=== PATIENT | female | born 1995 | race Caucasian/White ===

== ENCOUNTER 2022-05-03 11:58 | Inpatient (IN) | payer MEDICAID, OTHER ==
[~2022-05-03] VITALS: Ht 154.9 cm; Wt 55.6 kg
[2022-05-03] VITALS (13 sets, daily range): BP systolic 49–114; BP diastolic 18–96
[2022-05-03] MEDS ORDERED: SODIUM CHLORIDE 0.9% 1000ML BAG (SEPSIS BOLUS) IV ONE (12:45)
[2022-05-03 13:22] LABS: BG BASE EXCESS -20.4 mmol/L (-2.0-2.0); BG CARBOXYHEMOGLOBIN 0.3 % (0.5-1.5); BG DEOXYHEMOGLOBIN 1.8 % (0.0-5.0); BG HCO3 ACT 5.1 mmol/L (22.0-26.0); BG METHEMOGLOBIN 0.5 % (0.0-1.5); BG OXYGEN SATURATION 98.2 % (92.0-98.5); BG OXYHEMOGLOBIN 97.4 % (94.0-97.0); BG PCO2 13.1 mmHg (35.0-45.0); BG PH 7.209 (7.350-7.450); BG PO2 128.8 mmHg (75.0-100.0); BG SAMPLE SITE RIGHT RADIAL; BG TOTAL HEMOGLOBIN 11.6 g/dL (12.0-18.0); BG VENT MODE ROOM AIR
[2022-05-03 13:22] LABS: HEMATOCRIT. 33.5 % (36.0-48.0); HEMOGLOBIN. 10.9 g/dL (12.0-16.0); MEAN CORPUSCULAR HEMOGLOBIN 28.4 pg (28.0-32.0); MEAN CORPUSCULAR VOLUME 87.5 fL (81.0-99.0); MEAN PLATELET VOLUME 8.3 fl (7.4-10.4); PLATELET 456 x1000/uL (130-400); RED BLOOD CELL COUNT 3.83 mill/uL (4.2-5.4); RED CELL DISTRIBUTION WIDTH 15.6 % (11.6-14.6)
[2022-05-03] MEDS: ONDANSETRON HCL 4MG/2ML INJ IV NR ×2 (13:26→13:28)
[2022-05-03 13:27] LABS: CHLORIDE 89 mEq/L (98-107)
[2022-05-03 13:29] LABS: INR 1.2
[2022-05-03 13:34] LABS: HCG SCREEN NEGATIVE
[2022-05-03 13:39] LABS: BETA HYDROXYBUTYRATE 8.1 mMol/L (0.0-0.3); ETHANOL BLOOD < 10 mg/dL
[2022-05-03] MEDS ORDERED: POTASSIUM CHLORIDE 20MEQ TABLET SR PO NR (13:45)
[2022-05-03] MEDS ORDERED: PIPERACILLIN/TAZ 3.375G PREMIX 50 ML IV ONE (13:45)
[2022-05-03] MEDS ORDERED: VANCOMYCIN 1G PREMIX 200 ML IV SCH (13:45)
[2022-05-03] MEDS ORDERED: MORPHINE SULFATE 4 MG/ML CPJ (NOT FOR IM USE) IV NR (13:45)
[2022-05-03 13:58] LABS: PLATELET ESTIMATE SLIGHTLY INCREASED
[2022-05-03 14:11] LABS: C REACTIVE PROTEIN QUANT < 190.0 mg/L (0.0-3.0)
[2022-05-03] MEDS ORDERED: ONDANSETRON HCL 4MG/2ML INJ IV NR (15:00)
[2022-05-03] MEDS ORDERED: KCL 20MEQ/100ML PREMIX 100 ML IV ONE ×2 (16:15→17:30)
[2022-05-03 16:26] LABS: CLARITY URINE CLEAR (CLEAR); COLOR URINE YELLOW (YELLOW); KETONES URINE 4+ (NEGATIVE); LEUKOCYTE ESTERASE URINE 1+ (NEGATIVE); NITRITE URINE NEGATIVE (NEGATIVE); OCCULT BLOOD URINE 2+ (NEGATIVE); PROTEIN URINE 2+ (NEGATIVE); SPECIFIC GRAVITY URINE 1.022 (1.005-1.030); UROBILINOGEN URINE 0.2 E.U./dL (0.2-1.0)
[2022-05-03 16:52] LABS: *AMPHETAMINES SCREEN URINE NEGATIVE (NEGATIVE); *BARBITURATES SCREEN URINE NEGATIVE (NEGATIVE); *BENZODIAZEPINES SCREEN URINE NEGATIVE (NEGATIVE); *COCAINE SCREEN URINE NEGATIVE (NEGATIVE); METHADONE URINE SCREEN NEGATIVE (NEGATIVE); PHENCYCLIDINE URINE SCREEN NEGATIVE (NEGATIVE)
[2022-05-03 16:54] LABS: CANNABINOID URINE SCREEN PRESUMTIVE POSITIVE (NEGATIVE); OPIATES URINE SCREEN PRESUMTIVE POSITIVE (NEGATIVE)
[2022-05-03 17:12] LABS: CHLORIDE 94 mEq/L (98-107)
[2022-05-03] MEDS ORDERED: INSULIN REGULAR (HUMULIN R) 300UNITS/3ML VIAL IV ONE (17:30)
[2022-05-03] MEDS ORDERED: INSULIN REGULAR (DRIP) 100 UNITS in SODIUM CHLORIDE 0.9% 100 ML IV ONE (17:30)
[2022-05-03] MEDS ORDERED: SODIUM BICARBONATE 8.4% 1 MEQ/ML 50ML SYR IV ONE (17:45)
[2022-05-03] MEDS ORDERED: INSULIN REGULAR 100U/100ML PMX 100 ML IV SCH (17:45)
[2022-05-03] MEDS ORDERED: NALOXONE HCL 0.4MG/ML VIAL IV PRN (22:30)
[2022-05-03] MEDS: HYDROCODONE/ACETAMINOPHEN 10/325MG TABLET PO PRN (22:51)
[2022-05-04] VITALS (81 sets, daily range): BP systolic 92–154; BP diastolic 55–112
[2022-05-04] MEDS: DEXT 5%/0.45% NACL KCL 40MEQ/L 1,000 ML IV SCH ×2 (03:00→13:38)
[2022-05-04] MEDS ORDERED: INSULIN REGULAR 100U/100ML PMX 100 ML IV SCH ×2 (03:45→15:15)
[2022-05-04] MEDS ORDERED: DEXTROSE 50% WATER 50ML SYRINGE IV PRN ×2 (03:45)
[2022-05-04] MEDS ORDERED: INSULIN REGULAR (DRIP) 100 UNITS in SODIUM CHLORIDE 0.9% 100 ML IV SCH (03:45)
[2022-05-04] MEDS: BLOOD SUGAR DIAGNOSTIC STRIP TEST SCH ×21 (03:53→23:45)
[2022-05-04] MEDS: ONDANSETRON HCL 4MG TABLET PO PRN ×2 (04:28→13:48)
[2022-05-04 05:14] LABS: CHLORIDE 103 mEq/L (98-107)
[2022-05-04] MEDS ORDERED: POTASSIUM CHLORIDE INJ 60 MEQ in DEXT 5% WATER 250 ML IV ONE (05:30)
[2022-05-04] MEDS ORDERED: KCL 20MEQ/100ML X 3 FOR TOTAL KCL 60MEQ/200ML IV SCH (05:45)
[2022-05-04] MEDS: KCL 20MEQ/100ML X 3 FOR TOTAL KCL 60MEQ/200ML IV SCH ×3 (07:44→11:48)
[2022-05-04] MEDS: PIPERACILLIN/TAZOBACTAM 3.375 G in DEXTROSE 5% WATER 50 ML IV SCH ×3 (07:45→21:33)
[2022-05-04] MEDS ORDERED: VANCOMYCIN 1,000 MG in DEXT 5% WATER 250 ML IV SCH (08:00)
[2022-05-04 10:15] LABS: HEMATOCRIT. 27.7 % (36.0-48.0); HEMOGLOBIN. 9.3 g/dL (12.0-16.0); MEAN CORPUSCULAR HEMOGLOBIN 27.7 pg (28.0-32.0); MEAN CORPUSCULAR VOLUME 82.8 fL (81.0-99.0); MEAN PLATELET VOLUME 7.8 fl (7.4-10.4); PLATELET 255 x1000/uL (130-400); RED BLOOD CELL COUNT 3.35 mill/uL (4.2-5.4); RED CELL DISTRIBUTION WIDTH 16.2 % (11.6-14.6)
[2022-05-04 10:22] LABS: CHLORIDE 102 mEq/L (98-107)
[2022-05-04 10:59] LABS: PHOSPHORUS 0.8 mg/dL (2.5-4.9)
[2022-05-04] MEDS ORDERED: SODIUM PHOS,M-BASIC-D-BASIC 30 MM in DEXT 5% WATER 500 ML IV NR (12:30)
[2022-05-04 14:41] LABS: PLATELET ESTIMATE NORMAL
[2022-05-04 17:13] LABS: CHLORIDE 98 mEq/L (98-107)
[2022-05-04 17:50] LABS: PHOSPHORUS 1.4 mg/dL (2.5-4.9)
[2022-05-04] MEDS ORDERED: POTASSIUM PHOS,M-BASIC-D-BASIC 20 MMOL in DEXT 5% WATER 243.3333 ML IV NR (20:00)
[2022-05-04] MEDS: HYDROCODONE/ACETAMINOPHEN 10/325MG TABLET PO PRN (20:18)
[2022-05-04 21:58] LABS: CHLORIDE 99 mEq/L (98-107)
[2022-05-04 22:02] LABS: PHOSPHORUS 1.1 mg/dL (2.5-4.9)
[2022-05-04] MEDS ORDERED: POTASSIUM CHLORIDE INJ 40 MEQ in DEXT 5% WATER 500 ML IV ONE (22:15)
[2022-05-04] MEDS ORDERED: POTASSIUM PHOS,M-BASIC-D-BASIC 15 MMOL in DEXT 5% WATER 245 ML IV NR (23:30)
[2022-05-05] VITALS (55 sets, daily range): BP systolic 93–147; BP diastolic 51–103
[2022-05-05] MEDS: BLOOD SUGAR DIAGNOSTIC STRIP TEST SCH ×13 (00:45→21:38)
[2022-05-05] MEDS: KCL 20MEQ/100ML X 2 FOR TOTAL KCL 40MEQ/200ML IV SCH ×2 (01:07→02:08)
[2022-05-05] MEDS: DEXT 5%/0.45% NACL KCL 40MEQ/L 1,000 ML IV SCH ×2 (01:14→08:16)
[2022-05-05] MEDS: HYDROCODONE/ACETAMINOPHEN 10/325MG TABLET PO PRN ×3 (02:31→22:35)
[2022-05-05 05:39] LABS: HEMATOCRIT. 25.5 % (36.0-48.0); HEMOGLOBIN. 8.7 g/dL (12.0-16.0); MEAN CORPUSCULAR VOLUME 82.4 fL (81.0-99.0); MEAN PLATELET VOLUME 8.3 fl (7.4-10.4); PLATELET 202 x1000/uL (130-400); RED BLOOD CELL COUNT 3.09 mill/uL (4.2-5.4); RED CELL DISTRIBUTION WIDTH 16.1 % (11.6-14.6)
[2022-05-05 05:45] LABS: CHLORIDE 101 mEq/L (98-107)
[2022-05-05 05:48] LABS: PHOSPHORUS 1.8 mg/dL (2.5-4.9)
[2022-05-05] MEDS: PIPERACILLIN/TAZOBACTAM 3.375 G in DEXTROSE 5% WATER 50 ML IV SCH ×3 (06:29→21:43)
[2022-05-05 09:33] LABS: CHLORIDE 101 mEq/L (98-107)
[2022-05-05 09:44] LABS: PHOSPHORUS 1.4 mg/dL (2.5-4.9)
[2022-05-05] MEDS ORDERED: INSULIN GLARGINE 100 UNITS/ML SUBCUT NR (11:00)
[2022-05-05] MEDS ORDERED: DEXTROSE 50% WATER 50ML SYRINGE IV PRN (11:00)
[2022-05-05] MEDS: SODIUM CHLORIDE 0.9% 1,000 ML IV SCH ×2 (11:11→22:03)
[2022-05-05] MEDS: INSULIN LISPRO 100 UNITS/ML SUBCUT SCH ×3 (12:16→21:57)
[2022-05-05 12:55] LABS: CHLORIDE 100 mEq/L (98-107)
[2022-05-05] MEDS ORDERED: SODIUM PHOS,M-BASIC-D-BASIC 20 MM in DEXT 5% WATER 243.3333 ML IV NR (13:00)
[2022-05-05 13:04] LABS: PHOSPHORUS 1.1 mg/dL (2.5-4.9)
[2022-05-05 13:16] LABS: NUCLEATED RED BLOOD CELLS 2 /100 WBC
[2022-05-05 13:17] LABS: PLATELET ESTIMATE NORMAL
[2022-05-05] MEDS ORDERED: NALOXONE HCL 0.4MG/ML VIAL IV PRN (15:15)
[2022-05-05 17:02] LABS: CHLORIDE 99 mEq/L (98-107)
[2022-05-05 17:09] LABS: PHOSPHORUS 2.6 mg/dL (2.5-4.9)
[2022-05-05] MEDS ORDERED: INSULIN GLARGINE 100 UNITS/ML SUBCUT SCH (22:00)
[2022-05-05 22:31] LABS: CHLORIDE 100 mEq/L (98-107)
[2022-05-06] VITALS (15 sets, daily range): BP systolic 88–135; BP diastolic 33–86
[2022-05-06] MEDS: PIPERACILLIN/TAZOBACTAM 3.375 G in DEXTROSE 5% WATER 50 ML IV SCH ×3 (06:22→22:31)
[2022-05-06 06:39] LABS: HEMOGLOBIN. 8.9 g/dL (12.0-16.0); MEAN CORPUSCULAR HEMOGLOBIN 28.3 pg (28.0-32.0); MEAN CORPUSCULAR VOLUME 82.9 fL (81.0-99.0); MEAN PLATELET VOLUME 8.4 fl (7.4-10.4); PLATELET 233 x1000/uL (130-400); RED BLOOD CELL COUNT 3.13 mill/uL (4.2-5.4); RED CELL DISTRIBUTION WIDTH 16.5 % (11.6-14.6)
[2022-05-06] MEDS: BLOOD SUGAR DIAGNOSTIC STRIP TEST SCH ×4 (07:02→21:36)
[2022-05-06 07:19] LABS: CHLORIDE 100 mEq/L (98-107)
[2022-05-06] MEDS: SODIUM CHLORIDE 0.9% 1,000 ML IV SCH ×2 (09:11→16:34)
[2022-05-06] MEDS: HYDROCODONE/ACETAMINOPHEN 10/325MG TABLET PO PRN (09:19)
[2022-05-06] MEDS: INSULIN GLARGINE 100 UNITS/ML SUBCUT SCH ×2 (09:20→22:40)
[2022-05-06] MEDS: INSULIN LISPRO 100 UNITS/ML SUBCUT SCH ×4 (09:20→22:39)
[2022-05-06] MEDS: ONDANSETRON HCL 4MG/2ML INJ IV PRN (19:56)
[2022-05-06] MEDS: ACETAMINOPHEN 650MG/20.3ML UDC PO PRN (19:57)
[2022-05-07] VITALS (13 sets, daily range): BP systolic 85–139; BP diastolic 27–89
[2022-05-07] MEDS: METOCLOPRAMIDE HCL 10MG/2ML VIAL IV SCH ×5 (00:26→18:26)
[2022-05-07] MEDS: HYDROCODONE/ACETAMINOPHEN 10/325MG TABLET PO PRN ×2 (00:32→21:47)
[2022-05-07] MEDS: PIPERACILLIN/TAZOBACTAM 3.375 G in DEXTROSE 5% WATER 50 ML IV SCH ×3 (06:21→21:47)
[2022-05-07] MEDS: SODIUM CHLORIDE 0.9% 1,000 ML IV SCH ×2 (06:22→13:00)
[2022-05-07] MEDS: ONDANSETRON HCL 4MG/2ML INJ IV PRN (06:43)
[2022-05-07] MEDS: BLOOD SUGAR DIAGNOSTIC STRIP TEST SCH ×4 (07:30→21:00)
[2022-05-07] MEDS: INSULIN LISPRO 100 UNITS/ML SUBCUT SCH ×4 (08:35→21:37)
[2022-05-07 09:02] LABS: HEMATOCRIT. 26.1 % (36.0-48.0); HEMOGLOBIN. 8.7 g/dL (12.0-16.0); MEAN CORPUSCULAR HEMOGLOBIN 27.7 pg (28.0-32.0); MEAN CORPUSCULAR VOLUME 83.2 fL (81.0-99.0); MEAN PLATELET VOLUME 7.7 fl (7.4-10.4); PLATELET 224 x1000/uL (130-400); RED BLOOD CELL COUNT 3.14 mill/uL (4.2-5.4); RED CELL DISTRIBUTION WIDTH 16.2 % (11.6-14.6)
[2022-05-07 09:34] LABS: CHLORIDE 98 mEq/L (98-107)
[2022-05-07] MEDS: INSULIN GLARGINE 100 UNITS/ML SUBCUT SCH ×2 (10:21→21:36)
[2022-05-07 10:25] LABS: PLATELET ESTIMATE NORMAL
[2022-05-07] MEDS ORDERED: PHENAZOPYRIDINE HCL 100MG TABLET PO PRN (13:30)
[2022-05-07] MEDS ORDERED: POTASSIUM CHLORIDE INJ 40 MEQ in DEXT 5% WATER 250 ML IV ONE (15:30)
[2022-05-07 23:06] LABS: PLATELET ESTIMATE NORMAL
[2022-05-08] VITALS (12 sets, daily range): BP systolic 94–125; BP diastolic 58–93
[2022-05-08] MEDS: METOCLOPRAMIDE HCL 10MG/2ML VIAL IV SCH ×5 (00:17→23:47)
[2022-05-08] MEDS: SODIUM CHLORIDE 0.9% 1,000 ML IV SCH ×3 (00:18→17:54)
[2022-05-08] MEDS: PIPERACILLIN/TAZOBACTAM 3.375 G in DEXTROSE 5% WATER 50 ML IV SCH ×3 (06:08→21:43)
[2022-05-08] MEDS: BLOOD SUGAR DIAGNOSTIC STRIP TEST SCH ×4 (07:15→21:40)
[2022-05-08] MEDS: INSULIN LISPRO 100 UNITS/ML SUBCUT SCH ×4 (08:50→21:00)
[2022-05-08] MEDS: INSULIN GLARGINE 100 UNITS/ML SUBCUT SCH ×2 (10:14→21:48)
[2022-05-08] MEDS ORDERED: POTASSIUM CHLORIDE 20MEQ TABLET SR PO ONE (10:15)
[2022-05-08] MEDS: ACETAMINOPHEN 650MG/20.3ML UDC PO PRN (18:37)
[2022-05-08 20:03] LABS: HEMATOCRIT. 26.3 % (36.0-48.0); HEMOGLOBIN. 8.7 g/dL (12.0-16.0); MEAN CORPUSCULAR HEMOGLOBIN 27.8 pg (28.0-32.0); MEAN CORPUSCULAR VOLUME 83.5 fL (81.0-99.0); MEAN PLATELET VOLUME 7.6 fl (7.4-10.4); PLATELET 329 x1000/uL (130-400); RED BLOOD CELL COUNT 3.15 mill/uL (4.2-5.4); RED CELL DISTRIBUTION WIDTH 16.1 % (11.6-14.6)
[2022-05-08 20:11] LABS: CHLORIDE 96 mEq/L (98-107)
[2022-05-08] MEDS: HYDROCODONE/ACETAMINOPHEN 10/325MG TABLET PO PRN (21:44)
[2022-05-08 22:17] LABS: PLATELET ESTIMATE NORMAL
[2022-05-09] VITALS (7 sets, daily range): BP systolic 93–141; BP diastolic 25–89
[2022-05-09] MEDS: METOCLOPRAMIDE HCL 10MG/2ML VIAL IV SCH (06:13)
[2022-05-09] MEDS: PIPERACILLIN/TAZOBACTAM 3.375 G in DEXTROSE 5% WATER 50 ML IV SCH (06:13)
[2022-05-09] MEDS: INSULIN LISPRO 100 UNITS/ML SUBCUT SCH (06:13)
[2022-05-09] MEDS: BLOOD SUGAR DIAGNOSTIC STRIP TEST SCH (06:13)
[2022-05-09] MEDS: SODIUM CHLORIDE 0.9% 1,000 ML IV SCH (06:15)
[2022-05-09] MEDS: INSULIN GLARGINE 100 UNITS/ML SUBCUT SCH (10:00)
[2022-05-09] MEDS ORDERED: LEVO500T90 MT (11:03)
== END 2022-05-09 13:15 | disposition home or self-care (01) | DRG 720 ==
LOC: ER 12:09 → EDBEDREQSVC 13:49 → EDBEDREQ 13:49 → EDBEDREQTM 13:49 → EDBEDREQ 17:20 → ENRESERV 18:28 → MICUNO 20:31 → 5EST 05-05 15:08
PROVIDERS: ADMIT Internal Medicine; ATTEND Internal Medicine
DX: A41.59 Other Gram-negative sepsis (principal); E11.10 Type 2 diabetes mellitus with ketoacidosis without coma; E43 Unspecified severe protein-calorie malnutrition; N15.1 Renal and perinephric abscess; E87.8 Other disorders of electrolyte and fluid balance, not elsewhere classified; N12 Tubulo-interstitial nephritis, not specified as acute or chronic; E87.1 Hypo-osmolality and hyponatremia; D64.9 Anemia, unspecified; E87.6 Hypokalemia; R65.20 Severe sepsis without septic shock; Z20.822 Contact with and (suspected) exposure to COVID-19; Z79.4 Long term (current) use of insulin; Z82.49 Family history of ischemic heart disease and other diseases of the circulatory system; Z83.3 Family history of diabetes mellitus; Z87.440 Personal history of urinary (tract) infections; Z68.23 Body mass index [BMI] 23.0-23.9, adult
CPT/HCPCS: 36415; 36600; 71045; 74018; 74176; 80048; 80053; 80202; 80305; 80320; 81003; 82010; 82375; 82805; 82962; 83605; 83735; 83880; 84100; 84145; 84703; 85025; 86140; 86850; 86900; 87077; 87186; 87426; 93005; 97161; 97162; 97165; 99291; C9803; J1815; J2270; J2405; J2543; J2765; J3370; J3480; J3490; J7030; J7050; J7060; Q0162; G0480

== ENCOUNTER 2023-05-19 20:26 | Emergency (ER) | payer MEDICAID, OTHER ==
[~2023-05-19] VITALS: Ht 152.4 cm; Wt 58.0 kg
[~2023-05-19 20:26] MED LIST: INSLIS SUBCUT; INSU100I24 SQ; LEVO-65 MT
[2023-05-19 20:52] VITALS: BP 139/89; PULSE 100; RESP 12; TEMP 98.3; O2SAT 98
[2023-05-19] MEDS ORDERED: KETOROLAC 30MG/ML VIAL IM ONE (22:15)
[2023-05-19 22:59] LABS: HEMATOCRIT 36.6 % (36.0-48.0); HEMOGLOBIN 12.8 g/dL (12.0-16.0)
[2023-05-19] MEDS ORDERED: CLIN-194 MT (23:14)
[2023-05-19] MEDS ORDERED: MUPI15CR11 TP (23:31)
[2023-05-19 23:49] LABS: BASOPHILS % 0.4 % (0.0-2.0); HEMATOCRIT. 38.4 % (36.0-48.0); HEMOGLOBIN. 13.3 g/dL (12.0-16.0); LYMPHOCYTES % 13.4 % (20.0-50.0); MEAN CORPUSCULAR HEMOGLOBIN 32.2 pg (28.0-32.0); MEAN CORPUSCULAR VOLUME 92.6 fL (81.0-99.0); MEAN PLATELET VOLUME 8.9 fl (7.4-10.4); MONOCYTES % 6.7 % (2.0-8.0); NEUTROPHILS % 78.5 % (40.0-76.0); PLATELET 277 x1000/uL (130-400); RED BLOOD CELL COUNT 4.14 mill/uL (4.2-5.4); RED CELL DISTRIBUTION WIDTH 12.8 % (11.6-14.6)
== END 2023-05-19 23:41 | disposition home or self-care (01) ==
LOC: ER 20:26
DX: L03.032 Cellulitis of left toe (principal); E11.9 Type 2 diabetes mellitus without complications; Z87.440 Personal history of urinary (tract) infections; Z79.899 Other long term (current) drug therapy
CPT/HCPCS: 99283; 81025; 82962; 85025; 36415; 96372; 85018; 85014; J1885